=== PATIENT | female | born 1955 | race Caucasian/White ===

== ENCOUNTER 2025-06-28 14:42 | Inpatient (IN) | payer MEDICARE, MEDICAID ==
[~2025-06-28] VITALS: Ht 162.6 cm; Wt 62.6 kg
[~2025-06-28 14:42] MED LIST: LACT-390 PO; LEVO100T9 PO; MELA3TAB40 PO; MIDO5TAB4 PO; PANT40TA51 PO; RIFA550T PO; SPIR25TA PO
[2025-06-28 14:44] VITALS: O2SAT 99
[2025-06-28 16:46] LABS: BASOPHILS % 0.7 % (0.0-2.0); EOSINOPHILS % 5.0 % (0.0-5.0); LYMPHOCYTES % 21.2 % (20.0-50.0); MEAN PLATELET VOLUME 7.3 fl (7.4-10.4); MONOCYTES % 11.2 % (2.0-8.0); NEUTROPHILS % 61.9 % (40.0-76.0); PLATELET 182 x1000/uL (130-400); RED BLOOD CELL COUNT 1.30 mill/uL (4.2-5.4); RED CELL DISTRIBUTION WIDTH 20.2 % (11.6-14.6)
[2025-06-28 17:00] LABS: INR 1.0
[2025-06-28 17:02] LABS: CREATININE 1.7 mg/dL (0.6-1.0); UREA NITROGEN BLOOD 45 mg/dL (9-23)
[2025-06-28 17:03] LABS: TROPONIN I HIGH SENSITIVITY 21 ng/L (3.0-34)
[2025-06-28 17:04] LABS: ASPARTATE AMINOTRANSFERASE 21 IU/L (<34); BILIRUBIN DIRECT < 0.1 mg/dL (<=3.0)
[2025-06-28 17:05] LABS: BILIRUBIN TOTAL 0.3 mg/dL (0.1-1.0); HEMOGLOBIN. 4.1 g/dL (12.0-16.0); PROTEIN TOTAL 6.7 g/dL (6.0-8.3)
[2025-06-28 17:06] LABS: HEMATOCRIT. 12.9 % (36.0-48.0)
[2025-06-28] MEDS ORDERED: ONDANSETRON HCL 4MG/2ML INJ IV PRN (18:30)
[2025-06-28] MEDS ORDERED: NALOXONE HCL 0.4MG/ML VIAL IV PRN (18:30)
[2025-06-28] MEDS ORDERED: MAGNESIUM/ALUMINUM HYDROXIDE/SIMETHICONE 30ML UDC PO PRN (18:30)
[2025-06-28] MEDS ORDERED: DEXTROSE 50% WATER 50ML SYRINGE IV PRN (18:30)
[2025-06-28] MEDS ORDERED: HYDROCODONE/ACETAMINOPHEN 5/325MG TABLET PO PRN (18:30)
[2025-06-28] MEDS ORDERED: CLONIDINE 0.1MG TABLET PO PRN (18:30)
[2025-06-28] MEDS: PANTOPRAZOLE SODIUM 40 MG/VIAL IV SCH (20:00)
[2025-06-28 20:30] VITALS: BP 103/46; PULSE 84; RESP 18; TEMP 36.4736
[2025-06-28] MEDS: INSULIN LISPRO 100 UNITS/ML SUBCUT SCH (21:00)
[2025-06-28] MEDS: BLOOD SUGAR DIAGNOSTIC STRIP TEST SCH (21:00)
[2025-06-28] MEDS: LACTULOSE 20G/30ML UDC PO SCH (21:56)
[2025-06-28 22:35] LABS: TROPONIN I HIGH SENSITIVITY 18 ng/L (3.0-34)
[2025-06-29] VITALS (14 sets, daily range): BP systolic 94–126; BP diastolic 45–87; PULSE 65–78; RESP 16–22; TEMP 35.6–37.28076; O2SAT 97–100
[2025-06-29] MEDS: ACETAMINOPHEN 325MG TABLET PO PRN (02:54)
[2025-06-29 07:19] LABS: BASOPHILS % 0.6 % (0.0-2.0); EOSINOPHILS % 5.4 % (0.0-5.0); LYMPHOCYTES % 23.4 % (20.0-50.0); MEAN PLATELET VOLUME 7.4 fl (7.4-10.4); MONOCYTES % 14.8 % (2.0-8.0); NEUTROPHILS % 55.8 % (40.0-76.0); PLATELET 160 x1000/uL (130-400); RED BLOOD CELL COUNT 1.65 mill/uL (4.2-5.4); RED CELL DISTRIBUTION WIDTH 18.0 % (11.6-14.6)
[2025-06-29 07:40] LABS: HEMATOCRIT. 16.1 % (36.0-48.0); HEMOGLOBIN. 5.1 g/dL (12.0-16.0)
[2025-06-29 07:42] LABS: TROPONIN I HIGH SENSITIVITY 14.0 ng/L (3.0-34)
[2025-06-29 07:47] LABS: CREATININE 1.6 mg/dL (0.6-1.0); UREA NITROGEN BLOOD 36.0 mg/dL (9-23)
[2025-06-29] MEDS: SODIUM CHLORIDE 0.9% 1,000 ML IV SCH (08:56)
[2025-06-29] MEDS: OCTREOTIDE 1,000 MCG in SODIUM CHLORIDE 0.9% 98 ML IV SCH (15:35)
[2025-06-29 17:47] LABS: TROPONIN I HIGH SENSITIVITY 17 ng/L (3.0-34)
[2025-06-29 17:49] LABS: FOLIC ACID (FOLATE) SERUM > 20.00 ng/mL (>5.38); VITAMIN B12 SERUM 522 pg/mL (211-911)
[2025-06-29] MEDS: PANTOPRAZOLE SODIUM 40 MG/VIAL IV SCH (21:36)
[2025-06-30] VITALS: BP 127/74; PULSE 74; RESP 16; TEMP 36.9; O2SAT 100
[2025-06-30 04:00] VITALS: BP 114/58; PULSE 68; RESP 16; TEMP 36.9; O2SAT 100
[2025-06-30 08:00] VITALS: BP 126/70; PULSE 66; RESP 18; TEMP 36.6; O2SAT 99
[2025-06-30] MEDS ORDERED: NON FORMULARY MED XX SCH (08:45)
[2025-06-30] MEDS: IRON SUCROSE COMPLEX 100 MG/5 ML ML IV SCH (09:26)
[2025-06-30 11:53] LABS: HEMATOCRIT. 23.4 % (36.0-48.0); MEAN PLATELET VOLUME 7.4 fl (7.4-10.4); PLATELET 152 x1000/uL (130-400); RED BLOOD CELL COUNT 2.42 mill/uL (4.2-5.4); RED CELL DISTRIBUTION WIDTH 17.4 % (11.6-14.6)
[2025-06-30 11:59] LABS: CREATININE 1.4 mg/dL (0.6-1.0)
[2025-06-30 12:00] VITALS: BP 114/58; PULSE 68; RESP 16; TEMP 36.6; O2SAT 99
[2025-06-30 12:00] LABS: UREA NITROGEN BLOOD 23.0 mg/dL (9-23)
[2025-06-30 12:01] LABS: HEMOGLOBIN. 7.5 g/dL (12.0-16.0)
[2025-06-30 14:53] LABS: CLARITY URINE CLOUDY (CLEAR); COLOR URINE YELLOW (YELLOW); GLUCOSE URINE NEGATIVE (NEGATIVE); KETONES URINE NEGATIVE (NEGATIVE); LEUKOCYTE ESTERASE URINE NEGATIVE (NEGATIVE); NITRITE URINE NEGATIVE (NEGATIVE); OCCULT BLOOD URINE NEGATIVE (NEGATIVE); PH URINE 8.0 (4.5-8.0); PROTEIN URINE 3+ (NEGATIVE); SPECIFIC GRAVITY URINE 1.015 (1.005-1.030); UROBILINOGEN URINE 0.2 E.U./dL (0.2-1.0)
[2025-06-30 14:58] LABS: *AMPHETAMINES SCREEN URINE NEGATIVE (NEGATIVE); *BARBITURATES SCREEN URINE NEGATIVE (NEGATIVE); *BENZODIAZEPINES SCREEN URINE NEGATIVE (NEGATIVE); *COCAINE SCREEN URINE NEGATIVE (NEGATIVE); METHADONE URINE SCREEN NEGATIVE (NEGATIVE)
[2025-06-30 14:59] LABS: CANNABINOID URINE SCREEN NEGATIVE (NEGATIVE); ECSTASY MDMA SCREEN URINE NEGATIVE (NEGATIVE); OPIATES URINE SCREEN NEGATIVE (NEGATIVE); PHENCYCLIDINE URINE SCREEN NEGATIVE (NEGATIVE)
[2025-06-30 15:02] LABS: AMORPHOUS SEDIMENT URINE 1+ /lpf; BACTERIA URINE TRACE; RBC URINE 0-2 /hpf (0-2); SQUAMOUS EPITHELIAL CELL URINE 1+ /lpf (RARE/1+); TRIPLE PHOSPHATE CRYSTAL URINE 1+ /lpf; WBC URINE 0-2 /hpf (0-2); YEAST URINE NONE SEEN
[2025-06-30 16:00] VITALS: BP 131/81; PULSE 70; RESP 18; TEMP 36.6; O2SAT 99
[2025-06-30 17:29] LABS: EOSINOPHILS % MANUAL 7.0 % (0.0-5.0); LYMPHOCYTES % MANUAL 30.0 % (20.0-60.0); MONOCYTES % MANUAL 4.0 % (2.0-8.0); NEUTROPHILS % MANUAL 59.0 % (45.0-75.0); PLATELET ESTIMATE NORMAL
[2025-06-30] MEDS: ZOLPIDEM TARTRATE 5MG TABLET PO PRN (19:17)
[2025-07-01 07:31] LABS: HEMATOCRIT. 22.0 % (36.0-48.0); HEMOGLOBIN. 7.1 g/dL (12.0-16.0); MEAN PLATELET VOLUME 7.3 fl (7.4-10.4); PLATELET 155 x1000/uL (130-400); RED BLOOD CELL COUNT 2.28 mill/uL (4.2-5.4); RED CELL DISTRIBUTION WIDTH 16.9 % (11.6-14.6)
[2025-07-01 07:57] LABS: CREATININE 1.2 mg/dL (0.6-1.0); UREA NITROGEN BLOOD 20 mg/dL (9-23)
[2025-07-01 07:59] LABS: PHOSPHORUS 2.8 mg/dL (2.5-4.9)
[2025-07-01 08:00] VITALS: BP 118/57; PULSE 68; RESP 18; TEMP 36.9; O2SAT 99
[2025-07-01 10:46] LABS: BAND% 1.0 % (1.0-6.0); EOSINOPHILS % MANUAL 9.0 % (0.0-5.0); LYMPHOCYTES % MANUAL 24.0 % (20.0-60.0); MONOCYTES % MANUAL 9.0 % (2.0-8.0); NEUTROPHILS % MANUAL 57.0 % (45.0-75.0); PLATELET ESTIMATE NORMAL
[2025-07-01 11:03] VITALS: BP 134/55; PULSE 64; RESP 18; TEMP 36.89184
[2025-07-01 11:06] LABS: INR 1.1
[2025-07-01 11:20] VITALS: BP 131/64; PULSE 66; RESP 18; TEMP 36.9474
[2025-07-01 11:50] VITALS: BP 130/71; PULSE 70; RESP 20; TEMP 36.72516
[2025-07-01] MEDS ORDERED: ONDANSETRON HCL 4MG/2ML INJ IV PRN (13:30)
[2025-07-01] MEDS ORDERED: FENTANYL CITRATE/PF 50MCG/ML 2ML VIAL IV PRN (13:30)
[2025-07-01] MEDS ORDERED: PROPOFOL 200MG/20ML VIAL IV ONE (14:16)
[2025-07-01] MEDS ORDERED: LIDOCAINE HCL 1% 20ML VIAL ONE (14:17)
[2025-07-01 16:00] VITALS: BP 140/80; PULSE 70; RESP 17; TEMP 36.6; O2SAT 97
[2025-07-01 20:00] VITALS: BP 134/68; PULSE 68; RESP 18; TEMP 36.5; O2SAT 98
[2025-07-02] VITALS: BP 130/60; PULSE 70; RESP 18; TEMP 36.4; O2SAT 98
[2025-07-02 04:00] VITALS: BP 127/67; PULSE 63; RESP 18; TEMP 37.1; O2SAT 97
[2025-07-02 11:20] LABS: BASOPHILS % 0.7 % (0.0-2.0); EOSINOPHILS % 6.6 % (0.0-5.0); HEMATOCRIT. 26.8 % (36.0-48.0); HEMOGLOBIN. 8.7 g/dL (12.0-16.0); LYMPHOCYTES % 16.2 % (20.0-50.0); MEAN PLATELET VOLUME 7.3 fl (7.4-10.4); MONOCYTES % 12.8 % (2.0-8.0); NEUTROPHILS % 63.7 % (40.0-76.0); PLATELET 144 x1000/uL (130-400); RED BLOOD CELL COUNT 2.87 mill/uL (4.2-5.4); RED CELL DISTRIBUTION WIDTH 17.8 % (11.6-14.6)
[2025-07-02 11:22] LABS: CREATININE 1.2 mg/dL (0.6-1.0)
[2025-07-02 11:23] LABS: UREA NITROGEN BLOOD 19.0 mg/dL (9-23)
[2025-07-02 12:00] VITALS: BP 152/68; PULSE 67; RESP 18; TEMP 37.2; O2SAT 98
[2025-07-02] MEDS ORDERED: PROT40 MT (12:16)
[2025-07-02 12:20] VITALS: BP 152/68; PULSE 67; RESP 18; TEMP 37.2; O2SAT 98
[2025-07-02 15:05] VITALS: BP 152/68; PULSE 67; RESP 18; TEMP 98.9
[2025-07-02 15:25] VITALS: BP 158/76; PULSE 68; RESP 18; TEMP 36.9; O2SAT 100
[2025-07-02] MEDS ORDERED: PANTOPRAZOLE 40MG DR TABLET PO SCH (21:00)
== END 2025-07-02 15:40 | DRG 377 ==
LOC: ER 14:42 → 5WST 16:45 → EDBEDREQTM 16:46 → EDBEDREQ 16:46 → ENRESERV 17:52
PROVIDERS: ADMIT Internal Medicine; ATTEND Internal Medicine
PROC: 30233N1 Transfusion of Nonautologous Red Blood Cells into Peripheral Vein, Percutaneous Approach (ICD-10-PCS; 2025-06-29)
PROC: 0DB78ZX Excision of Stomach, Pylorus, Via Natural or Artificial Opening Endoscopic, Diagnostic (ICD-10-PCS; principal; 2025-07-01)
PROC: 3E0G8GC Introduction of Other Therapeutic Substance into Upper GI, Via Natural or Artificial Opening Endoscopic (ICD-10-PCS; 2025-07-01)
PROC: 0W3P8ZZ Control Bleeding in Gastrointestinal Tract, Via Natural or Artificial Opening Endoscopic (ICD-10-PCS; 2025-07-01)
DX: K29.01 Acute gastritis with bleeding (principal); G92.8 Other toxic encephalopathy; K76.6 Portal hypertension; D62 Acute posthemorrhagic anemia; N17.9 Acute kidney failure, unspecified; M50.30 Other cervical disc degeneration, unspecified cervical region; B19.20 Unspecified viral hepatitis C without hepatic coma; E11.22 Type 2 diabetes mellitus with diabetic chronic kidney disease; I12.9 Hypertensive chronic kidney disease with stage 1 through stage 4 chronic kidney disease, or unspecified chronic kidney disease; I48.91 Unspecified atrial fibrillation; K74.60 Unspecified cirrhosis of liver; B18.2 Chronic viral hepatitis C; M25.78 Osteophyte, vertebrae; E61.1 Iron deficiency; N18.9 Chronic kidney disease, unspecified; M47.9 Spondylosis, unspecified; M43.12 Spondylolisthesis, cervical region; E78.5 Hyperlipidemia, unspecified; F17.210 Nicotine dependence, cigarettes, uncomplicated; Z79.899 Other long term (current) drug therapy
CPT/HCPCS: 36415; 71111; 80048; 80076; 80305; 81003; 82105; 82140; 82270; 82607; 82746; 82962; 82977; 83540; 83550; 83735; 83880; 84100; 84443; 84484; 85014; 85018; 85025; 85044; 85379; 86850; 86900; 86920; 88305; 93005; 93970; 99285; J1815; J2003; J2354; J2470; J2704; J7030; J7050; P9016